=== PATIENT | female | born 1940 | race Caucasian/White ===

== ENCOUNTER 2021-02-09 22:20 | Emergency (ER) | payer MEDICARE, OTHER ==
[2021-02-09 22:34] VITALS: BP 150/75
[2021-02-09] MEDS ORDERED: KETOROLAC 60 MG/2 ML VIAL IM STA (23:57)
--- NOTE | 2021-02-10 | ED Physician Documentation ---
PD HPI Fall - Stated complaint Stated Complaint: GLF, L RIB PX - Chief complaint Chief Complaint: Trauma Ch/Bk - History obtained from History obtained from: Patient, Family - History of Present Illness Mechanism of injury: Tripped Fall distance: Standing position Where injury occurred: Home Timing - onset: Today Injury(ies) location: Chest Quality of pain: Pain Associated symptoms: No: LOC, AMS, Amnesia Symptoms improve with: Rest Worsens with: Movement, Palpation Contributing factors: No: Anticoagulated Similar symptoms before: Has not had sx before Recently seen: Not recently seen - Additional information Additional information: 80-year-old female was in her home turned around to go out to her deck tripped and fell into her [email or web address] coffee table. She contused her left ribs. She is having some sharp pain in there she did not hear a crack or pop and she is able to breathe and periodically will have a sharp stabbing pain.She has not otherwise been really ill recently. Review of Systems Constitutional: denies: Fever Eyes: denies: Decreased vision Ears: denies: Ear pain Nose: denies: Congestion Throat: denies: Sore throat Cardiac: reports: Chest pain / pressure. denies: Palpitations, Pedal edema, Calf pain Respiratory: denies: Dyspnea, Cough GI: denies: Abdominal Pain, Nausea, Vomiting : denies: Dysuria, Frequency PD PAST MEDICAL HISTORY - Past Medical History Past Medical History: Yes - Present Medications Home Medications: Ambulatory Orders Medication Instructions Recorded Confirmed HYDROcod/ACETAM 5/325 [[place] 5/325] 1 - 2 tablet PO Q6H PRN #14 tablet 02/10/21 - Allergies Allergies/Adverse Reactions: Allergies Allergy/AdvReac Type Severity Reaction Status Date / Time No Known Drug Allergies Allergy Verified 02/09/21 22:31 - Social History Does the pt smoke?: No Smoking Status: Never smoker Does the pt drink ETOH?: No Does the pt have substance abuse?: No - Immunizations Immunizations are current?: Yes PD ED PE NORMAL - Vitals Vital signs reviewed: Yes (Hypertensive) - General General: Alert and oriented X 3, No acute distress, Well developed/nourished - HEENT HEENT: Atraumatic, PERRL, EOMI - Neck Neck: Supple, no meningeal sign, No bony TTP - Cardiac Cardiac: RRR, No murmur - Respiratory Respiratory: No respiratory distress, Clear bilaterally, Other (There is specific point tenderness to the ribs on the lower chest wall on the left side there is no pain to palpation from the abdominal side.) - Abdomen Abdomen: Soft, Non tender - Back Back: No CVA TTP, No spinal TTP - Derm Derm: Normal color, Warm and dry, No rash - Extremities Extremities: No deformity, No edema - Neuro Neuro: Alert and oriented X 3, cloud developer 2-12 intact, No motor deficit, No sensory deficit, Normal speech Eye Opening: Spontaneous Motor: Obeys Commands Verbal: Oriented GCS Score: 15 - Psych Psych: Normal mood, Normal affect Results - Vitals Vitals: Vital Signs - 24 hr 02/09/21 22:31 Temperature 36.6 C Heart Rate 73 Respiratory 16 Rate Blood Pressure 150/75 H O2 Saturation 98 Oxygen O2 Source Room air - Rads (name of study) ribs with PA chest Radiology: Prelim report reviewed (Impression: No left-sided rib fracture identified. Some densities in the left lung base which may represent atelectasis and or scarring.), EMP read indepedently, See rad report PD MEDICAL DECISION MAKING - ED course Complexity details: reviewed results, re-evaluated patient, considered differential, d/w patient, d/w family ED course: 80-year-old female with a rib contusion has pain to palpation. She is administered Toradol 60 mg IM and rib films are obtained. No evidence of fracture. Dx. chest wall contusion. Departure - Departure Disposition: 01 Home, Self Care Clinical Impression: Contusion of chest wall Qualifiers: Encounter type: initial encounter Laterality: left Qualified Code(s): S20.212A - Contusion of left front wall of thorax, initial encounter Condition: Stable Instructions: ED Contusion Chest Wall Prescriptions: HYDROcod/ACETAM 5/325 [[place] 5/325] 1 - 2 tablet PO Q6H PRN #14 tablet PRN Reason: Pain
[2021-02-10] MEDS ORDERED: HYDROcod/ACET 5/325 Prepack 4 PO STA (00:55)
[2021-02-10] MEDS ORDERED: HYDROcod/ACET 5/325 Prepack 4 PO ONE (01:21)
--- NOTE | 2021-02-10 09:25 | XRAY Report ---
PROCEDURE: Ribs w/PA Chest LT INDICATIONS: left lower rib contusion TECHNIQUE: 2 views of the left ribs were acquired, along with a single view chest. COMPARISON: None. FINDINGS: Surgical changes and devices: None. Bones and chest wall: No fractures or dislocations. No suspicious bony lesions. Overlying soft tis sues appear unremarkable. Lungs and pleura: Left basilar opacity is likely atelectasis. No pleural effusions or pneumothorax. Mediastinum: Mediastinal contours appear normal. Heart size is normal. IMPRESSION: 1. No displaced left rib fracture is identified. 2. Left basilar atelectasis. No significant discrepancy with the preliminary interpretation. Reviewed by: Brandin Brown MD on 02/10/2021 9:24 AM PDT Approved by: Brandin Brown MD on 02/10/2021 9:24 AM PDT Station ID: [id number]
== END 2021-02-10 01:30 | disposition home or self-care (01) ==
LOC: ED 22:20
DX: S20.212A Contusion of left front wall of thorax, initial encounter (principal); W01.190A Fall on same level from slipping, tripping and stumbling with subsequent striking against furniture, initial encounter; Y92.009 Unspecified place in unspecified non-institutional (private) residence as the place of occurrence of the external cause
CPT/HCPCS: 96372; 99283; 99284